=== PATIENT | female | born 1965 | race African-American/Black ===

== ENCOUNTER 2022-09-01 12:24 | Emergency (ER) | payer MEDICAID ==
[~2022-09-01] VITALS: Ht 154.9 cm; Wt 51.0 kg
[2022-09-01 13:01] VITALS: BP 97/69
== END 2022-09-01 16:15 | disposition home or self-care (01) ==
LOC: ER 12:24
DX: J06.9 Acute upper respiratory infection, unspecified (principal); E11.22 Type 2 diabetes mellitus with diabetic chronic kidney disease; N18.6 End stage renal disease; Z99.2 Dependence on renal dialysis
CPT/HCPCS: 99281